=== PATIENT | female | born 1960 | race Caucasian/White ===

== ENCOUNTER 2022-11-21 08:40 | Day surgery (SDC) | payer BC ==
[~2022-11-21] VITALS: Ht 167.6 cm; Wt 60.0 kg
[~2022-11-21 08:40] MED LIST: MULTI VITAMINS1 TAB PO
[2022-11-21 10:51] VITALS: BP 128/65; PULSE 86; TEMP 97.5
[2022-11-21] MEDS ORDERED: FLOMAX 0.40.4 MG/CAP PO (11:15)
[2022-11-21] MEDS ORDERED: NORCO 325 MG-51 TAB PO (11:15)
[2022-11-21 12:00] VITALS: BP 115/66; PULSE 56; TEMP 98.9
[2022-11-21 12:15] VITALS: BP 108/50; PULSE 62
[2022-11-21 12:30] VITALS: BP 124/57; PULSE 52
[2022-11-21 12:45] VITALS: BP 121/56; PULSE 64
[2022-11-21 13:00] VITALS: BP 131/58; PULSE 60
--- NOTE | 2022-11-21 13:20 | NUR ---
1200 RETURNS TO ROOM 7 PER CART. AWAKE, ALERT. RESP CLEAR, UNLABORED. HOB ELEVATED 40 DEGREES. EXPRESSES COMFORT. CALL LIGHT AT SIDE. FRIEND/NEIGHBOR HERE. 1215 TOLERATES PO WATER, APPLESAUCE AND CRACKERS WITHOUT NAUSEA. 1230 AWAKE,ALERT. CONVERSES WITH FRIEND. 1245 WHEN ASKED REPORTS MILD LEFT FLANK AREA DISCOMFORT AND SLIGHT URINARY URGENCY. DENIES NEED FOR PAIN MED. 1250 DISCHARGE INSRUCTIONS REVIEWED. PATIENT VERBALIZES UNDERSTANDING. COPY PROVIDED IN DISCHARGE FOLDER. 1305 SITS ON EDGE OF CART. DRESSES SELF. 1312 AMBULATES TO BATHROOM WITH STANDBY ASSIST. ADMITS TO VOIDING WITHOUT DIFFICULTY. DESCRIBES URINE BEING LIGHT RED IN COLOR.
== END 2022-11-21 13:20 | disposition home or self-care (01) ==
LOC: SDCO 08:40
DX: N20.1 Calculus of ureter (principal)
CPT/HCPCS: C1769; C2617; J0690; J1100; J2405; J2704; J3010; Q9967

== ENCOUNTER → 2022-12-12 | Outpatient (CLI) | payer BC ==
[~2022-12-12] MED LIST changes: +FLOMAX 0.40.4 MG/CAP PO; +NORCO 325 MG-51 TAB PO
== END ==
LOC: MC.RAD 15:29
DX: Z12.31 Encounter for screening mammogram for malignant neoplasm of breast (principal)

== ENCOUNTER 2022-12-19 22:52 | Emergency (ER) | payer BC ==
[~2022-12-19] VITALS: Ht 167.6 cm; Wt 60.0 kg
[2022-12-19 23:11] VITALS: TEMP 98.2
[2022-12-20 00:09] VITALS: BP 106/68; PULSE 66
== END 2022-12-20 00:09 | disposition home or self-care (01) ==
LOC: COL.ER 22:52
DX: T83.84XA Pain due to genitourinary prosthetic devices, implants and grafts, initial encounter (principal); Z87.442 Personal history of urinary calculi
CPT/HCPCS: J1885

== ENCOUNTER → 2023-12-13 | Outpatient (CLI) | payer BC | LOC: MC.RAD 08:33 | DX: Z12.31 Encounter for screening mammogram for malignant neoplasm of breast (principal) ==

== ENCOUNTER 2024-01-29 06:01 | Emergency (ER) | payer BC ==
[~2024-01-29] VITALS: Ht 167.6 cm; Wt 58.2 kg
[2024-01-29 06:08] VITALS: TEMP 97.1
[2024-01-29 06:36] LABS: BASO % 0.8 % (0.0-2.0); EOS # 0.1 K/mm3 (0.0-0.7); EOS % 1.6 % (0.0-4.0); GRAN # 3.2 K/mm3 (1.4-6.5); GRAN % 61.9 % (42.2-75.2); HEMATOCRIT 41.5 % (37.0-47.0); HEMOGLOBIN 14.1 g/dl (12.5-16.0); LYMPH # 1.5 K/mm3 (1.2-3.4); LYMPH % 29.8 % (20.0-51.0); MEAN CELL VOLUME 90 fl (80.0-100.0); MEAN CORPUSCULAR HEMOGLOBIN 31 pg (27-31); MEAN CORPUSCULAR HGB CONC 34 g/dl (33.0-37.0); MEAN PLATELET VOLUME 10.6 fl (7.4-10.4); MONO # 0.3 K/mm3 (0.1-0.6); MONO % 5.7 % (1.7-9.3); PLATELET COUNT 258 K/mm3 (130-400); RED BLOOD COUNT 4.61 M/mm3 (4.10-5.30); REDCELL DISTRIBUTION WIDTH-CV 12.5 % (11.5-14.5)
[2024-01-29 06:51] LABS: ALANINE AMINOTRANSFERASE 12 U/L (0-55); ALBUMIN 4.1 g/dL (3.4-4.8); ALKALINE PHOSPHATASE 52 U/L (40-150); ANION GAP 9 mmol/L (7-16); AST,SGOT 17 U/L (5-34); BILIRUBIN,TOTAL 0.9 mg/dL (0.2-1.2); BLOOD UREA NITROGEN 14 mg/dL (10-20); CALCIUM 9.5 mg/dL (8.4-10.2); CHLORIDE 108 mEq/L (98-107); CREATININE, serum 0.83 mg/dL (0.57-1.11); GLUCOSE 96 mg/dL (70-99); POTASSIUM 3.6 mEq/L (3.5-4.5); SODIUM 142 mEq/L (136-145)
[2024-01-29 07:01] LABS: TROPONIN-I < 0.010 ng/mL (0.00-0.033)
[2024-01-29 09:22] VITALS: BP 107/73; PULSE 69
== END 2024-01-29 09:22 | disposition home or self-care (01) ==
LOC: COL.ER 06:01
PROVIDERS: Personal Emergency Response Attendant
DX: R07.9 Chest pain, unspecified (principal); I49.3 Ventricular premature depolarization